=== PATIENT | female | born 1965 | race Native Hawaiian/Other Pacific Islander ===

== ENCOUNTER 2017-01-14 09:47 | Day surgery (SDC) | payer OTHER ==
--- NOTE | 2017-01-14 13:20 | CP.SDSHP ---
Same Day Surgery H & P - History Proposed Procedure: Left chest port removal Pre-Op Diagnosis: Breast cancer - Allergies Allergies: Allergies iodixanol [From Visipaque] Allergy (Severe, Verified 03/12/16 07:46) RASH generalized docetaxel Allergy (Verified 04/05/15 09:23) RASH paclitaxel Allergy (Verified 03/14/15 11:40) RASH - Physical Exam Mental Status: Alert & Oriented x3 Neuro: WNL Heart: WNL Lungs: WNL - Impression Impression: Pt with breast cancer s/p completion of chemotherapy treatment. She is refered for port removal. Plan removal of left IJ port. Informed consent obtained. Pt. Evaluated Today:Candidate for Anesthesia & Procedure: Yes (ASA 3 Malampati 3) - Date & Time Date: 01/14/17 Time: 13:00 Short Stay Discharge - Short Stay Discharge Admitting Diagnosis/Reason for Visit: BREAST CA
[2017-01-14] MEDS ORDERED: Lidocaine 2% Inj (20ml) ONE (13:27)
--- NOTE | 2017-01-14 13:57 | PCM.SURG1 ---
Surgeon's Initial Post Op Note - Surgeon's Notes Surgeon: Federico Wiley MD Foreign Policy Officer: NONE Type of Anesthesia: IV Sedation Pre-Operative Diagnosis: Breast cancer Operative Findings: Left IJV port Post-Operative Diagnosis: Breast cancer Operation Performed: Left port removal Specimen/Specimens Removed: Existing port Estimated Blood Loss: EBL {In ML}: 2 Blood Products Given: N/A Drains Used: No Drains Post-Op Condition: Fair Date of Surgery/Procedure: 01/14/17 Time of Surgery/Procedure: 13:50
[2017-01-14 13:58] VITALS: BMI 24.0
[2017-01-14 15:07] VITALS: BP 124/59; PULSE 65; RESP 18; TEMP 97; O2SAT 100
== END 2017-01-14 15:10 | disposition home or self-care (01) ==
LOC: C.SPRAD 09:47
PROVIDERS: ATTEND Radiology Vascular & Interventional Radiology
DX: Z45.2 Encounter for adjustment and management of vascular access device (principal)
CPT/HCPCS: 36590; J1644

== ENCOUNTER 2018-06-25 07:28 | Outpatient (CLI) | payer OTHER | END 2018-06-25 07:29 | disposition home or self-care (01) | LOC: C.LAB 07:28 | DX: C50.919 Malignant neoplasm of unspecified site of unspecified female breast (principal) ==